=== PATIENT | male | born 1995 | race African-American/Black ===

== ENCOUNTER 2018-10-23 13:58 | Emergency (ER) | payer OTHER ==
[~2018-10-23] VITALS: Ht 200.7 cm; Wt 83.9 kg
[~2018-10-23 13:58] MED LIST: VICODIN 5-5001 EACH PO
[2018-10-23 14:09] VITALS: BP 117/81
[2018-10-23] MEDS ORDERED: NAPROSYN500 MG PO (14:39)
[2018-10-23] MEDS ORDERED: DOXYCYCLINE 10100 MG PO (14:39)
== END 2018-10-23 15:44 | disposition home or self-care (01) ==
LOC: ER 13:58
DX: L03.317 Cellulitis of buttock (principal)

== ENCOUNTER 2019-01-06 01:47 | Emergency (ER) | payer OTHER ==
[~2019-01-06] VITALS: Ht 200.7 cm; Wt 86.2 kg
[~2019-01-06 01:47] MED LIST changes: +DOXYCYCLINE 10100 MG PO; +NAPROSYN500 MG PO
[2019-01-06] MEDS ORDERED: CHLORHEXADINE120 M1 TOP (02:09)
[2019-01-06] MEDS ORDERED: BACTRIM DS TAB1 EACH PO (02:09)
[2019-01-06] MEDS ORDERED: MUPIROCIN1 GM TOP (02:09)
[2019-01-06 02:45] VITALS: BP 144/62
== END 2019-01-06 02:45 | disposition home or self-care (01) ==
LOC: ER 01:47
DX: L02.415 Cutaneous abscess of right lower limb (principal); L02.416 Cutaneous abscess of left lower limb; L02.411 Cutaneous abscess of right axilla; Z90.01 Acquired absence of eye